=== PATIENT | male | born 1945 | race Caucasian/White ===

== ENCOUNTER 2021-04-20 08:49 | Inpatient (IN) ==
[2021-04-20 10:01] LABS: ABS Basophils 0.1 10^3/ul (0-0.2); ABS Eosinophils 0.2 10^3/ul (0-0.6); ABS Lymphocytes 1.5 10^3/ul (1.0-4.8); ABS Monocytes 0.8 10^3/ul (0-0.8); ABS Neutrophils 6.7 10^3/ul (1.5-7.7); Eosinophil % 2.6 %; Hematocrit 38 % (42-52); Hemoglobin 12.7 g/dL (14.0-18.0); Lymphocyte % 16.1 %; Mean Corpuscular HGB Conc 33 g/dL (31-36); Mean Corpuscular Hemoglobin 30 pg (27-31); Mean Corpuscular Volume 90 fL (80-94); Mean Platelet Volume 7.9 fL (7.4-10.4); Platelet Count 257 10^3/uL (150-450); Red Blood Count 4.25 10^6 /uL (4.18-5.48); Red Cell Distribution Width 14 % (10-15); White Blood Count 9.2 10^3/uL (3.5-10.8)
[2021-04-20 10:18] LABS: Albumin 3.8 g/dL (3.2-5.2); Albumin/Globulin Ratio 1.4 (1-3); Calcium 9.1 mg/dL (8.6-10.3); Globulin 2.8 g/dL (2-4); Magnesium 2.1 mg/dL (1.9-2.7); Total Bilirubin 0.6 mg/dL (0.2-1.0); Total Protein 6.6 g/dL (6.4-8.9); eGFR CKD-EPI 44.4 (>60)
[2021-04-20 10:19] LABS: Potassium 5.2 mmol/L (3.5-5.0)
[2021-04-20 10:20] LABS: Troponin I 0.01 ng/mL (<0.03)
[2021-04-20] MEDS ORDERED: Iodixanol (CONTRAST) 320 MG/ML 100 ML SDV IV ONE (10:54)
[2021-04-20 10:59] LABS: TSH Ultra Thyroid Stim Horm 1.99 mcIU/mL (0.34-5.60)
[2021-04-20] MEDS ORDERED: Acetaminophen IV 1 GM/100ML 100 ML IV ONE (11:45)
[2021-04-20] MEDS ORDERED: Magnesium Hydroxide LIQ 30 ML UDC PO PRN (13:26)
[2021-04-20] MEDS ORDERED: NS 0.9% 1000 ml BAG 1,000 ML IV SCH (14:00)
[2021-04-20 16:57] LABS: HDL Cholesterol 32.4 mg/dL
[2021-04-20 18:17] LABS: Troponin I 0.03 ng/mL (<0.03)
[2021-04-21 06:16] LABS: ABS Basophils 0.1 10^3/ul (0-0.2); ABS Eosinophils 0.3 10^3/ul (0-0.6); ABS Lymphocytes 1.5 10^3/ul (1.0-4.8); ABS Monocytes 0.6 10^3/ul (0-0.8); ABS Neutrophils 6.3 10^3/ul (1.5-7.7); Eosinophil % 3.1 %; Hematocrit 37 % (42-52); Hemoglobin 12.8 g/dL (14.0-18.0); Lymphocyte % 16.9 %; Mean Corpuscular HGB Conc 34 g/dL (31-36); Mean Corpuscular Hemoglobin 30 pg (27-31); Mean Corpuscular Volume 87 fL (80-94); Mean Platelet Volume 7.8 fL (7.4-10.4); Platelet Count 219 10^3/uL (150-450); Red Blood Count 4.27 10^6 /uL (4.18-5.48); Red Cell Distribution Width 14 % (10-15); White Blood Count 8.7 10^3/uL (3.5-10.8)
[2021-04-21 06:34] LABS: Anion Gap 6 mmol/L (2-11); Blood Urea Nitrogen 27 mg/dL (6-24); CO2 Carbon Dioxide 26 mmol/L (22-32); Calcium 8.9 mg/dL (8.6-10.3); Chloride 102 mmol/L (101-111); Glucose 128 mg/dL (70-100); Magnesium 2.1 mg/dL (1.9-2.7); Potassium 4.3 mmol/L (3.5-5.0); Sodium 134 mmol/L (135-145); eGFR CKD-EPI 63.6 (>60)
[2021-04-21] MEDS: Aspirin EC 81 mg TAB.EC (enteric coated) PO SCH (08:04)
[2021-04-21 08:23] LABS: Troponin I 0.03 ng/mL (<0.03)
[2021-04-21] MEDS ORDERED: Regadenoson 0.4 MG/5 ML SYRINGE ONE (09:44)
[2021-04-21] MEDS ORDERED: Aminophylline 25 MG/ML VIAL ONE (09:44)
[2021-04-22 05:18] LABS: Calcium 9.3 mg/dL (8.6-10.3); Magnesium 1.9 mg/dL (1.9-2.7); Potassium 4.3 mmol/L (3.5-5.0); eGFR CKD-EPI 69.9 (>60)
[2021-04-22] MEDS: Aspirin EC 81 mg TAB.EC (enteric coated) PO SCH (08:46)
[2021-04-22 09:33] LABS: % Iron Saturation 28 % (14 - 50); Total Iron Binding Capacity 330 mcg/dL (250 - 400)
[2021-04-22 15:34] VITALS: BP 151/97
== END 2021-04-22 15:47 | disposition home or self-care (01) | DRG 918 ==
LOC: ED 08:49 → EDHOLD 13:26 → MEDTELE 18:46
PROVIDERS: ADMIT Student in an Organized Health Care Education/Training Program; ATTEND Internal Medicine

== ENCOUNTER 2021-05-31 16:27 | Inpatient (IN) ==
[2021-05-31 17:47] LABS: ABS Eosinophils 0.1 10^3/ul (0-0.6); ABS Lymphocytes 1.6 10^3/ul (1.0-4.8); ABS Monocytes 0.6 10^3/ul (0-0.8); ABS Neutrophils 7.8 10^3/ul (1.5-7.7); Eosinophil % 1.2 %; Hematocrit 46 % (42-52); Hemoglobin 15.9 g/dL (14.0-18.0); Lymphocyte % 15.5 %; Mean Corpuscular HGB Conc 35 g/dL (31-36); Mean Corpuscular Hemoglobin 31 pg (27-31); Mean Corpuscular Volume 89 fL (80-94); Mean Platelet Volume 9.2 fL (7.4-10.4); Nucleated Red Blood Cells % 0.1; Platelet Count 269 10^3/uL (150-450); Red Blood Count 5.21 10^6 /uL (4.18-5.48); Red Cell Distribution Width 14 % (10-15); White Blood Count 10.1 10^3/uL (3.5-10.8)
[2021-05-31] MEDS ORDERED: Lactated Ringers 1000 ml BAG 1,000 ML IV SCH ×2 (18:00→19:00)
[2021-05-31 18:03] LABS: ALT 14 U/L (7-52); AST 15 U/L (13-39); Albumin 4.2 g/dL (3.2-5.2); Albumin/Globulin Ratio 1.4 (1-3); Alkaline Phosphatase 66 U/L (35-149); CO2 Carbon Dioxide 20 mmol/L (22-32); Calcium 9.8 mg/dL (8.6-10.3); Chloride 103 mmol/L (101-111); Globulin 3.1 g/dL (2-4); Glucose 130 mg/dL (70-100); Rapid COVID-19 Molecular Undetected (Undetected); Sodium 138 mmol/L (135-145); Total Protein 7.3 g/dL (6.4-8.9); eGFR CKD-EPI 18.8 (>60)
[2021-05-31 18:04] LABS: Anion Gap 15 mmol/L (2-11); Potassium 5.2 mmol/L (3.5-5.0)
[2021-05-31 18:05] LABS: Troponin I 0.03 ng/mL (<0.03)
[2021-05-31 18:24] LABS: Blood Urea Nitrogen 149 mg/dL (6-24)
[2021-05-31 20:59] LABS: CO2 Carbon Dioxide 21 mmol/L (22-32); Calcium 9.1 mg/dL (8.6-10.3); Chloride 105 mmol/L (101-111); Glucose 109 mg/dL (70-100); Sodium 137 mmol/L (135-145); eGFR CKD-EPI 22.6 (>60)
[2021-05-31 21:06] LABS: Troponin I 0.03 ng/mL (<0.03)
[2021-05-31 21:34] LABS: Blood Urea Nitrogen 137 mg/dL (6-24)
[2021-05-31 21:49] LABS: Anion Gap 11 mmol/L (2-11); Potassium 5.3 mmol/L (3.5-5.0)
[2021-05-31 22:19] LABS: Magnesium 2.9 mg/dL (1.9-2.7)
[2021-06-01 00:08] LABS: C Reactive Protein 1.75 mg/L (<8.01); Creatine Kinase 60 U/L (10-223)
[2021-06-01 01:00] LABS: Erythrocyte Sed Rate 0 mm/Hr (0-19)
[2021-06-01] MEDS ORDERED: NS 0.9% 1000 ml BAG 1,000 ML IV SCH ×2 (01:30→07:00)
[2021-06-01] MEDS ORDERED: NS 0.45% 1000 ml BAG 1,000 ML IV SCH ×2 (02:00→07:00)
[2021-06-01 05:02] LABS: Anion Gap 10 mmol/L (2-11); Blood Urea Nitrogen 116 mg/dL (6-24); CO2 Carbon Dioxide 22 mmol/L (22-32); Calcium 9.3 mg/dL (8.6-10.3); Chloride 104 mmol/L (101-111); Glucose 101 mg/dL (70-100); Magnesium 2.4 mg/dL (1.9-2.7); Potassium 4.9 mmol/L (3.5-5.0); Sodium 136 mmol/L (135-145); eGFR CKD-EPI 29.3 (>60)
[2021-06-01 06:30] LABS: Troponin I 0.03 ng/mL (<0.03)
[2021-06-01] MEDS: Aspirin EC 81 mg TAB.EC (enteric coated) PO SCH (09:25)
[2021-06-01 14:13] LABS: Urine Appearance Cloudy; Urine Bilirubin Negative (Negative); Urine Blood 3+ (Negative); Urine Color Yellow; Urine Glucose Negative (Negative); Urine Ketones Trace (Negative); Urine Nitrite Negative (Negative); Urine Protein Negative (Negative); Urine Specific Gravity 1.015 (1.002-1.030); Urine Urobilinogen Negative (Negative)
[2021-06-01 14:18] LABS: Urine Bacteria 1+ (Absent); Urine Red Blood Cell 3+(>10/hpf) (Absent); Urine White Blood Cell 1+(6-10/hpf) (Absent)
[2021-06-01 14:25] LABS: Urine Creatinine Concentration 62.21 mg/dL
[2021-06-01] MEDS ORDERED: Lactated Ringers 1000 ml BAG 1,000 ML IV SCH (19:00)
[2021-06-02 05:58] LABS: ABS Eosinophils 0.2 10^3/ul (0-0.6); ABS Monocytes 0.7 10^3/ul (0-0.8); ABS Neutrophils 7.2 10^3/ul (1.5-7.7); Eosinophil % 1.9 %; Hematocrit 41 % (42-52); Hemoglobin 14.2 g/dL (14.0-18.0); Lymphocyte % 11.1 %; Mean Corpuscular HGB Conc 34 g/dL (31-36); Mean Corpuscular Hemoglobin 30 pg (27-31); Mean Corpuscular Volume 89 fL (80-94); Mean Platelet Volume 9.4 fL (7.4-10.4); Platelet Count 219 10^3/uL (150-450); Red Blood Count 4.67 10^6 /uL (4.18-5.48); Red Cell Distribution Width 14 % (10-15); White Blood Count 9.2 10^3/uL (3.5-10.8)
[2021-06-02 06:19] LABS: Calcium 9.3 mg/dL (8.6-10.3); Magnesium 1.9 mg/dL (1.9-2.7); eGFR CKD-EPI 43.8 (>60)
[2021-06-02 06:21] LABS: Potassium 5.1 mmol/L (3.5-5.0)
[2021-06-02] MEDS: Aspirin EC 81 mg TAB.EC (enteric coated) PO SCH (10:11)
[2021-06-02] MEDS ORDERED: Lactated Ringers 1000 ml BAG 1,000 ML IV SCH (13:00)
[2021-06-03 06:14] LABS: Calcium 8.9 mg/dL (8.6-10.3); Magnesium 1.6 mg/dL (1.9-2.7); Potassium 4.3 mmol/L (3.5-5.0); eGFR CKD-EPI 62.3 (>60)
[2021-06-03] MEDS ORDERED: Magnesium Sulfate 2 gm BAG 2 GM/50 ML BAG IVPB ONE (07:59)
[2021-06-03] MEDS: Aspirin EC 81 mg TAB.EC (enteric coated) PO SCH (09:59)
[2021-06-03 12:09] VITALS: BP 123/72
== END 2021-06-03 18:30 | disposition home or self-care (01) | DRG 308 ==
LOC: ED 16:27 → EDHOLD 16:27 → SUATTDRO 23:00 → MEDTELE 06-01 02:20 → SUATTDRO 06-01 14:43
PROVIDERS: ADMIT Internal Medicine; ATTEND Internal Medicine

== ENCOUNTER 2022-10-15 11:20 | Inpatient (IN) ==
[2022-10-15] MEDS ORDERED: NS 0.9% 1000 ml BAG 1,000 ML IV ONE (11:51)
[2022-10-15 12:15] LABS: ABS Basophils 0.1 10^3/uL (0.0-0.1); ABS Eosinophils 0.3 10^3/uL (0.0-0.5); ABS Lymphocytes 1.2 10^3/uL (1.0-4.8); ABS Monocytes 0.5 10^3/uL (0.0-1.1); ABS Neutrophils 7.8 10^3/uL (1.5-7.6); ABS Nucleated RBC 0.01 10^3/ul; Eosinophil % 2.6 %; Hematocrit 43.8 % (38-53); Hemoglobin 15.1 g/dL (13.2-16.3); Mean Corpuscular Hgb Conc 34.5 g/dL (31-36); Mean Corpuscular Volume 89.7 fL (80-97); Mean Platelet Volume 7.7 fL (7.5-11.2); Nucleated Red Blood Cells % 0.1 /100 WBC (0.0-0.4); Platelet Count 262 10^3/uL (150-450); Red Blood Count 4.88 10^6/uL (4.06-5.63); Red Cell Distribution Width 14.3 % (12-17); White Blood Count 9.7 10^3/uL (3.6-10.2)
[2022-10-15 12:24] LABS: INR 1.18 (0.88-1.18)
[2022-10-15 12:34] LABS: ALT 12 U/L (7-52); AST 16 U/L (13-39); Albumin 4.4 g/dL (3.2-5.2); Albumin/Globulin Ratio 1.3 (1-3); Alkaline Phosphatase 64 U/L (35-149); Anion Gap 12 mmol/L (2-16); Blood Urea Nitrogen 33 mg/dL (6-24); CO2 Carbon Dioxide 20 mmol/L (22-32); Calcium 10.4 mg/dL (8.6-10.3); Chloride 108 mmol/L (101-111); Creatine Kinase 133 U/L (10-223); Creatinine, Serum 1.22 mg/dL (0.67-1.17); Globulin 3.3 g/dL (2-4); Glucose 189 mg/dL (70-100); Lipase 21 U/L (11.0-82.0); Magnesium 1.6 mg/dL (1.9-2.7); Potassium 3.7 mmol/L (3.5-5.0); Sodium 140 mmol/L (135-145); Total Protein 7.7 g/dL (6.4-8.9); eGFR CKD-EPI 60.7 (>60)
[2022-10-15 12:40] LABS: High Sens Troponin Baseline 466 pg/mL (<20)
[2022-10-15 12:54] LABS: Alcohol, S < 13 mg/dL (<13)
[2022-10-15] MEDS ORDERED: Magnesium Sulfate 2 gm BAG 2 GM/50 ML BAG IVPB ONE ×2 (12:59→13:31)
[2022-10-15 13:39] LABS: High Sensitivity Troponin 1 Hr 408 pg/mL (<20)
[2022-10-15 14:08] LABS: Urine Appearance Clear; Urine Bilirubin Negative (Negative); Urine Blood Negative (Negative); Urine Color Yellow; Urine Glucose Negative (Negative); Urine Ketones Negative (Negative); Urine Nitrite Negative (Negative); Urine Protein 1+(30 mg/dL) (Negative); Urine Specific Gravity 1.017 (1.002-1.030); Urine Urobilinogen Negative (Negative)
[2022-10-15 14:20] LABS: Urine Bacteria Absent (Absent); Urine Red Blood Cell Absent (Absent); Urine Transitional Epithelial Present (Absent); Urine White Blood Cell Absent (Absent)
[2022-10-15 15:41] LABS: Calcium (PTH Intact) 10.2 mg/dL (8.6-10.3)
[2022-10-15 15:44] LABS: Cholesterol 222 mg/dL; LDL Cholesterol 160 mg/dL; Phosphorus 3.1 mg/dL (2.5-5.0); Triglycerides 104 mg/dL
[2022-10-15 15:56] LABS: TSH Ultra Thyroid Stim Horm 10.93 mcIU/mL (0.34-5.60)
[2022-10-15] MEDS ORDERED: Heparin DRIP 25,000 UNITS BAG 25,000 UNITS/500 ML BAG IV SCH (16:30)
[2022-10-15] MEDS ORDERED: Metoprolol Tartrate 5 mg VIAL 5 ml VIAL (1 mg/ml) IV ONE (17:18)
[2022-10-15] MEDS ORDERED: hydrALAZINE 20 mg/ml 1 ML Vial IV IV SLOW PU PRN (18:11)
[2022-10-15] MEDS: Heparin 5000 UNITS/ML 1 mL VIAL IV PRN (19:37)
[2022-10-15 21:35] LABS: Creatinine, Serum 1.04 mg/dL (0.67-1.17); eGFR CKD-EPI 73.5 (>60)
[2022-10-16 04:17] LABS: ABS Basophils 0.1 10^3/uL (0.0-0.1); ABS Eosinophils 0.4 10^3/uL (0.0-0.5); ABS Lymphocytes 1.7 10^3/uL (1.0-4.8); ABS Monocytes 0.7 10^3/uL (0.0-1.1); ABS Neutrophils 7.2 10^3/uL (1.5-7.6); Hematocrit 42.4 % (38-53); Hemoglobin 14.7 g/dL (13.2-16.3); Lymphocyte % 17.2 %; Mean Corpuscular Hemoglobin 30.8 pg (27-33); Mean Corpuscular Hgb Conc 34.8 g/dL (31-36); Mean Corpuscular Volume 88.6 fL (80-97); Mean Platelet Volume 7.6 fL (7.5-11.2); Platelet Count 243 10^3/uL (150-450); Red Blood Count 4.79 10^6/uL (4.06-5.63); Red Cell Distribution Width 14.3 % (12-17); White Blood Count 10.1 10^3/uL (3.6-10.2)
[2022-10-16 04:33] LABS: Creatinine, Serum 1.04 mg/dL (0.67-1.17); Potassium 3.8 mmol/L (3.5-5.0); eGFR CKD-EPI 73.5 (>60)
[2022-10-16] MEDS: Heparin 5000 UNITS/ML 1 mL VIAL IV PRN (05:25)
[2022-10-16 08:23] LABS: Magnesium 2.2 mg/dL (1.9-2.7); Phosphorus 2.9 mg/dL (2.5-5.0)
[2022-10-16] MEDS ORDERED: Regadenoson 0.4 MG/5 ML SYRINGE ONE (08:59)
[2022-10-16] MEDS ORDERED: Aminophylline 25 MG/ML VIAL ONE (08:59)
[2022-10-16] MEDS ORDERED: Aspirin EC 81 mg TAB.EC (enteric coated) PO SCH ×2 (11:34→15:02)
[2022-10-16 14:05] VITALS: BP 120/100
== END 2022-10-16 19:02 | disposition home or self-care (01) | DRG 311 ==
LOC: EDHOLD 11:20 → ED 11:20 → SUATTDRO 15:00 → MEDTELE 17:37
PROVIDERS: ADMIT Student in an Organized Health Care Education/Training Program; ATTEND Internal Medicine

== ENCOUNTER 2023-07-17 10:13 | Observation (INO) ==
[2023-07-17] MEDS: NS 0.9% 1000 ml BAG 1,000 ML IV ONE (11:24)
[2023-07-17 11:46] LABS: ABS Eosinophils 0.1 10^3/uL (0.0-0.5); ABS Lymphocytes 1.2 10^3/uL (1.0-4.8); ABS Monocytes 0.8 10^3/uL (0.0-1.1); ABS Neutrophils 10.2 10^3/uL (1.5-7.6); Eosinophil % 0.6 %; Hematocrit 42.4 % (38-53); Hemoglobin 14.2 g/dL (13.2-16.3); Mean Corpuscular Hemoglobin 28.7 pg (27-33); Mean Corpuscular Hgb Conc 33.5 g/dL (31-36); Mean Corpuscular Volume 85.6 fL (80-97); Mean Platelet Volume 8.1 fL (7.5-11.2); Platelet Count 294 10^3/uL (150-450); Red Blood Count 4.96 10^6/uL (4.06-5.63); Red Cell Distribution Width 15.3 % (12-17); White Blood Count 12.3 10^3/uL (3.6-10.2)
[2023-07-17 11:55] LABS: INR 1.56 (0.83-1.13)
[2023-07-17 12:13] LABS: Albumin 4.2 g/dL (3.2-5.2); Albumin/Globulin Ratio 1.3 (1-3); Calcium 9.5 mg/dL (8.6-10.3); Creatinine, Serum 1.61 mg/dL (0.67-1.17); Globulin 3.2 g/dL (2-4); Potassium 4.6 mmol/L (3.5-5.0); Total Bilirubin 1.4 mg/dL (0.2-1.0); Total Protein 7.4 g/dL (6.4-8.9); eGFR CKD-EPI 43.2 (>60)
[2023-07-17 13:00] LABS: High Sensitivity Troponin 1 Hr 305 pg/mL (<20)
[2023-07-17] MEDS: Iodixanol (CONTRAST) 320 MG/ML 100 ML SDV IV ONE (13:06)
[2023-07-17] MEDS: NS 0.9% 1000 ml BAG 1,000 ML IV SCH ×2 (14:07→19:21)
[2023-07-17 14:18] LABS: Urine Appearance Cloudy; Urine Color Red
[2023-07-17 14:28] LABS: Urine Specific Gravity > 1.060 (1.002-1.030)
[2023-07-17 14:49] LABS: Urine Bacteria Absent /HPF (Absent); Urine Red Blood Cell 3+(>10/hpf) /HPF (0-Trace); Urine White Blood Cell 1+(6-10/hpf) /HPF (0-Trace)
[2023-07-17 18:28] LABS: High Sens Troponin Baseline 377 pg/mL (<20)
[2023-07-17 18:55] LABS: Creatine Kinase 6526 U/L (10-223)
[2023-07-17] MEDS: Lactated Ringers 1000 ml BAG 1,000 ML IV SCH ×2 (19:22)
[2023-07-17 19:25] LABS: High Sensitivity Troponin 1 Hr 369 pg/mL (<20)
[2023-07-17] MEDS: Nystatin TOP POWDER 15 GM BTL TOPICAL SCH (23:28)
[2023-07-18 06:31] LABS: ABS Eosinophils 0.3 10^3/uL (0.0-0.5); ABS Lymphocytes 1.4 10^3/uL (1.0-4.8); ABS Monocytes 0.6 10^3/uL (0.0-1.1); ABS Neutrophils 5.8 10^3/uL (1.5-7.6); ABS Nucleated RBC 0.02 10^3/ul; Eosinophil % 3.3 %; Hematocrit 36.4 % (38-53); Hemoglobin 12.7 g/dL (13.2-16.3); Lymphocyte % 17.1 %; Mean Corpuscular Hemoglobin 29.9 pg (27-33); Mean Corpuscular Volume 85.3 fL (80-97); Nucleated Red Blood Cells % 0.2 %/100WBC (0.0-0.8); Platelet Count 222 10^3/uL (150-450); Red Blood Count 4.26 10^6/uL (4.06-5.63); Red Cell Distribution Width 15.5 % (12-17); White Blood Count 8.1 10^3/uL (3.6-10.2)
[2023-07-18 06:56] LABS: Calcium 8.1 mg/dL (8.6-10.3); Creatinine, Serum 1.17 mg/dL (0.67-1.17); Potassium 4.1 mmol/L (3.5-5.0); eGFR CKD-EPI 63.4 (>60)
[2023-07-18 07:10] LABS: TSH Ultra Thyroid Stim Horm 10.16 mcIU/mL (0.34-5.60)
[2023-07-18 07:12] LABS: Albumin 3.4 g/dL (3.2-5.2); Albumin/Globulin Ratio 1.3 (1-3); Globulin 2.6 g/dL (2-4); Magnesium 1.9 mg/dL (1.9-2.7); Phosphorus 2.4 mg/dL (2.5-5.0); Total Bilirubin 1.3 mg/dL (0.2-1.0)
[2023-07-18] MEDS ORDERED: Sulfur Hexaflouride MICROSPHR 25 MG VIAL ONE (08:40)
[2023-07-18] MEDS: CMCS:Alfuzosin ER 10 mg TAB.ER (NF) 10 MG TAB.ER PO SCH (10:39)
[2023-07-18] MEDS: Aspirin EC 81 mg TAB.EC (enteric coated) PO SCH (10:39)
[2023-07-18 17:53] VITALS: BP 113/91
== END 2023-07-18 18:40 | disposition home or self-care (01) ==
LOC: ED 10:13 → EDHOLD 10:13 → SUATTDRO 15:03 → MEDTELE 16:45
PROVIDERS: ADMIT Internal Medicine; ATTEND Student in an Organized Health Care Education/Training Program

== ENCOUNTER 2023-08-17 14:45 | Observation (INO) ==
[2023-08-17 16:14] LABS: ABS Basophils 0.1 10^3/uL (0.0-0.1); ABS Eosinophils 0.2 10^3/uL (0.0-0.5); ABS Lymphocytes 1.6 10^3/uL (1.0-4.8); ABS Monocytes 0.6 10^3/uL (0.0-1.1); ABS Neutrophils 5.5 10^3/uL (1.5-7.6); Hematocrit 39.5 % (38-53); Hemoglobin 13.4 g/dL (13.2-16.3); Lymphocyte % 20.5 %; Mean Corpuscular Hemoglobin 29.2 pg (27-33); Mean Corpuscular Volume 85.9 fL (80-97); Mean Platelet Volume 8.3 fL (7.5-11.2); Nucleated Red Blood Cells % 0.1 %/100WBC (0.0-0.8); Platelet Count 189 10^3/uL (150-450); Red Cell Distribution Width 14.9 % (12-17); White Blood Count 7.9 10^3/uL (3.6-10.2)
[2023-08-17] MEDS: NS 0.9% 500 ml BAG 500 ML IV ONE (16:39)
[2023-08-17 16:41] LABS: Albumin 3.9 g/dL (3.2-5.2); Albumin/Globulin Ratio 1.3 (1-3); C Reactive Protein 4.07 mg/L (<8.01); Calcium 9.3 mg/dL (8.6-10.3); Creatinine, Serum 2.14 mg/dL (0.67-1.17); Globulin 2.9 g/dL (2-4); Magnesium 1.6 mg/dL (1.9-2.7); Phosphorus 2.6 mg/dL (2.5-5.0); Potassium 4.4 mmol/L (3.5-5.0); Total Protein 6.8 g/dL (6.4-8.9); eGFR CKD-EPI 30.7 (>60)
[2023-08-17 18:02] LABS: High Sensitivity Troponin 1 Hr 207 pg/mL (<20)
[2023-08-17] MEDS: Magnesium Sulfate 2 gm BAG 2 GM/50 ML BAG IVPB ONE (18:33)
[2023-08-17 20:18] LABS: High Sensitivity Troponin 3 Hr 222 pg/mL (<20)
[2023-08-18 05:22] LABS: Urine Appearance Clear; Urine Bilirubin Negative (Negative); Urine Blood Negative (Negative); Urine Color Yellow; Urine Glucose Negative (Negative); Urine Ketones Negative (Negative); Urine Nitrite 1+ (Negative); Urine Protein 1+ (>=30 mg/dL) (Negative); Urine Specific Gravity 1.022 (1.002-1.030); Urine Urobilinogen Negative (Negative); Urine pH 5.5 (5.0-8.0)
[2023-08-18 05:35] LABS: Urine Bacteria Absent /HPF (Absent); Urine Red Blood Cell Absent /HPF (0-Trace); Urine White Blood Cell 1+(6-10/hpf) /HPF (0-Trace)
[2023-08-18 06:27] LABS: Calcium 9.2 mg/dL (8.6-10.3); Creatinine, Serum 1.93 mg/dL (0.67-1.17); Magnesium 1.8 mg/dL (1.9-2.7); Potassium 4.6 mmol/L (3.5-5.0); eGFR CKD-EPI 34.8 (>60)
[2023-08-18] MEDS: Magnesium Sulfate 2 gm BAG 2 GM/50 ML BAG IVPB ONE (07:16)
[2023-08-18] MEDS: Nystatin TOP POWDER 15 GM BTL TOPICAL SCH (08:01)
[2023-08-18] MEDS: CMCS:Alfuzosin ER 10 mg TAB.ER (NF) 10 MG TAB.ER PO SCH (08:01)
[2023-08-18] MEDS: Aspirin EC 81 mg TAB.EC (enteric coated) PO SCH (08:02)
[2023-08-19 06:21] LABS: Calcium 8.4 mg/dL (8.6-10.3); Creatinine, Serum 1.65 mg/dL (0.67-1.17); Magnesium 1.7 mg/dL (1.9-2.7); Potassium 3.9 mmol/L (3.5-5.0)
[2023-08-19 09:51] VITALS: BP 117/78
== END 2023-08-19 12:00 | disposition home or self-care (01) ==
LOC: ED 14:45 → EDHOLD 14:45 → SUATTDRO 21:03 → MEDTELE 08-18 01:03
PROVIDERS: ADMIT Internal Medicine; ATTEND Student in an Organized Health Care Education/Training Program

== ENCOUNTER 2023-09-09 09:21 | Observation (INO) ==
[2023-09-09 10:06] LABS: ABS Basophils 0.1 10^3/uL (0.0-0.1); ABS Eosinophils 0.1 10^3/uL (0.0-0.5); ABS Lymphocytes 1.5 10^3/uL (1.0-4.8); ABS Monocytes 0.5 10^3/uL (0.0-1.1); ABS Neutrophils 6.1 10^3/uL (1.5-7.6); Eosinophil % 1.3 %; Hematocrit 39.3 % (38-53); Hemoglobin 13.5 g/dL (13.2-16.3); Lymphocyte % 18.1 %; Mean Corpuscular Hemoglobin 29.2 pg (27-33); Mean Corpuscular Hgb Conc 34.2 g/dL (31-36); Mean Corpuscular Volume 85.2 fL (80-97); Mean Platelet Volume 8.4 fL (7.5-11.2); Platelet Count 320 10^3/uL (150-450); Red Blood Count 4.61 10^6/uL (4.06-5.63); White Blood Count 8.3 10^3/uL (3.6-10.2)
[2023-09-09] MEDS: NS 0.9% 1000 ml BAG 1,000 ML IV ONE (10:09)
[2023-09-09 10:21] LABS: Activated Partial Thrombo Time 33.1 seconds (26.0-38.0); INR 1.96 (0.83-1.13)
[2023-09-09 10:24] LABS: Albumin 3.8 g/dL (3.2-5.2); Albumin/Globulin Ratio 1.2 (1-3); C Reactive Protein 2.1 mg/L (<8.01); Calcium 9.3 mg/dL (8.6-10.3); Creatinine, Serum 2.63 mg/dL (0.67-1.17); Globulin 3.1 g/dL (2-4); Potassium 4.5 mmol/L (3.5-5.0); Total Bilirubin 0.8 mg/dL (0.2-1.0); Total Protein 6.9 g/dL (6.4-8.9)
[2023-09-09 11:36] LABS: High Sensitivity Troponin 1 Hr 246 pg/mL (<20)
[2023-09-09 13:13] LABS: Urine Appearance Turbid; Urine Bilirubin Negative (Negative); Urine Blood 2+ (Negative); Urine Color Yellow; Urine Glucose Negative (Negative); Urine Ketones Negative (Negative); Urine Nitrite Negative (Negative); Urine Protein 2+ (>=100 mg/dL) (Negative); Urine Specific Gravity 1.023 (1.002-1.030); Urine Urobilinogen Negative (Negative); Urine pH 5.5 (5.0-8.0)
[2023-09-09 13:39] LABS: Urine Bacteria Absent /HPF (Absent); Urine Red Blood Cell 3+(>10/hpf) /HPF (0-Trace); Urine White Blood Cell 1+(6-10/hpf) /HPF (0-Trace)
[2023-09-09 13:46] LABS: Magnesium 1.8 mg/dL (1.9-2.7)
[2023-09-09] MEDS: Magnesium Sulfate 2 gm BAG 2 GM/50 ML BAG IVPB ONE (17:23)
[2023-09-09] MEDS ORDERED: Dextrose 50% Syringe 50 ml 25 GM/50 ML SYRINGE IV PUSH PRN (18:52)
[2023-09-09] MEDS ORDERED: Ondansetron 4 mg VIAL 2 MG/ML 2 ml VIAL IV PRN (19:43)
[2023-09-09] MEDS: Sulfamethox/Trimethoprim SS TAB 400/80 mg PO SCH (21:17)
[2023-09-09] MEDS: CMCS: Bicalutamide 50 mg TAB (NF) PO SCH (21:17)
[2023-09-10 06:12] LABS: Hematocrit 34.8 % (38-53); Hemoglobin 12.4 g/dL (13.2-16.3); Mean Corpuscular Hgb Conc 35.5 g/dL (31-36); Mean Corpuscular Volume 84.7 fL (80-97); Platelet Count 211 10^3/uL (150-450); Red Blood Count 4.11 10^6/uL (4.06-5.63); Red Cell Distribution Width 15.1 % (12-17); White Blood Count 6.6 10^3/uL (3.6-10.2)
[2023-09-10 06:40] LABS: Calcium 8.8 mg/dL (8.6-10.3); Creatinine, Serum 2.24 mg/dL (0.67-1.17); Magnesium 2.1 mg/dL (1.9-2.7); Potassium 3.9 mmol/L (3.5-5.0); eGFR CKD-EPI 29.1 (>60)
[2023-09-10] MEDS: CMCS: Alfuzosin ER 10 mg TAB.ER (NF) 10 MG TAB.ER PO SCH (08:40)
[2023-09-10] MEDS: Aspirin EC 81 mg TAB.EC (enteric coated) PO SCH (08:40)
[2023-09-10] MEDS: Lactated Ringers 1000 ml BAG 1,000 ML IV ONE (14:38)
[2023-09-10] MEDS: Nystatin SUSPENSION 100,000 UNITS/ML UDC PO SCH (17:14)
[2023-09-11 06:27] LABS: Calcium 8.4 mg/dL (8.6-10.3); Creatinine, Serum 2.13 mg/dL (0.67-1.17); Magnesium 1.9 mg/dL (1.9-2.7); Phosphorus 2.1 mg/dL (2.5-5.0); Potassium 4.2 mmol/L (3.5-5.0); eGFR CKD-EPI 30.9 (>60)
[2023-09-11 06:50] LABS: Folate 7.94 ng/mL (5.90-24.80)
[2023-09-11] MEDS: Potassium & Sodium Phos 250 mg = 1 PACKET PO SCH (09:47)
[2023-09-11] MEDS: Magnesium Sulfate IV 1GM/100ML 1 GM/100 ML BAG IV ONE (14:39)
[2023-09-12 07:13] LABS: Calcium 8.5 mg/dL (8.6-10.3); Creatinine, Serum 2.03 mg/dL (0.67-1.17); Phosphorus 2.4 mg/dL (2.5-5.0); Potassium 4.3 mmol/L (3.5-5.0); eGFR CKD-EPI 32.7 (>60)
[2023-09-12 11:35] LABS: TSH Ultra Thyroid Stim Horm 2.58 mcIU/mL (0.34-5.60)
[2023-09-12 14:55] LABS: ABS Eosinophils 0.2 10^3/uL (0.0-0.5); ABS Lymphocytes 1.1 10^3/uL (1.0-4.8); ABS Monocytes 0.4 10^3/uL (0.0-1.1); ABS Nucleated RBC 0.01 10^3/ul; Eosinophil % 3.7 %; Hematocrit 34.9 % (38-53); Hemoglobin 11.9 g/dL (13.2-16.3); Lymphocyte % 18.7 %; Mean Corpuscular Hgb Conc 34.1 g/dL (31-36); Mean Corpuscular Volume 85.2 fL (80-97); Mean Platelet Volume 8.1 fL (7.5-11.2); Nucleated Red Blood Cells % 0.1 %/100WBC (0.0-0.8); Platelet Count 194 10^3/uL (150-450); Red Blood Count 4.09 10^6/uL (4.06-5.63); Red Cell Distribution Width 15.1 % (12-17); White Blood Count 5.8 10^3/uL (3.6-10.2)
[2023-09-13 07:39] LABS: Calcium 8.6 mg/dL (8.6-10.3); Creatinine, Serum 1.87 mg/dL (0.67-1.17); Potassium 4.3 mmol/L (3.5-5.0); eGFR CKD-EPI 36.1 (>60)
[2023-09-13] MEDS ORDERED: Sulfur Hexaflouride MICROSPHR 25 MG VIAL ONE (08:12)
[2023-09-13 09:09] LABS: Phosphorus 2.9 mg/dL (2.5-5.0)
[2023-09-13 14:14] VITALS: BP 97/60
== END 2023-09-13 13:52 ==
LOC: EDHOLD 09:21 → ED 09:21 → SUATTDRO 14:57 → MEDTELE 15:53 → UNDODISOB 09-13 13:52
PROVIDERS: ADMIT Internal Medicine; ATTEND Internal Medicine

== ENCOUNTER 2023-12-12 09:36 | Observation (INO) ==
[2023-12-12 10:45] LABS: ABS Eosinophils 0.1 10^3/uL (0.0-0.5); ABS Lymphocytes 0.6 10^3/uL (1.0-4.8); ABS Monocytes 0.6 10^3/uL (0.0-1.1); ABS Neutrophils 8.6 10^3/uL (1.5-7.6); ABS Nucleated RBC 0.01 10^3/ul; Eosinophil % 0.9 %; Hematocrit 31.2 % (38-53); Hemoglobin 10.7 g/dL (13.2-16.3); Lymphocyte % 6.1 %; Mean Corpuscular Hemoglobin 30.8 pg (27-33); Mean Corpuscular Hgb Conc 34.1 g/dL (31-36); Mean Corpuscular Volume 90.3 fL (80-97); Mean Platelet Volume 7.5 fL (7.5-11.2); Nucleated Red Blood Cells % 0.1 %/100WBC (0.0-0.8); Platelet Count 250 10^3/uL (150-450); Red Blood Count 3.46 10^6/uL (4.06-5.63); Red Cell Distribution Width 15.3 % (12-17); White Blood Count 9.9 10^3/uL (3.6-10.2)
[2023-12-12 12:03] LABS: Albumin 3.4 g/dL (3.2-5.2); Albumin/Globulin Ratio 1.1 (1-3); Calcium 8.5 mg/dL (8.6-10.3); Creatinine, Serum 1.27 mg/dL (0.67-1.17); Potassium 4.4 mmol/L (3.5-5.0); Total Bilirubin 0.9 mg/dL (0.2-1.0); Total Protein 6.4 g/dL (6.4-8.9); eGFR CKD-EPI 57.5 (>60)
[2023-12-12] MEDS: Iodixanol (CONTRAST) 320 MG/ML 100 ML SDV IV ONE (13:14)
[2023-12-12 17:13] LABS: Urine Appearance Turbid; Urine Bilirubin Negative (Negative); Urine Blood 2+ (Negative); Urine Color Yellow; Urine Glucose Negative (Negative); Urine Ketones Negative (Negative); Urine Nitrite Negative (Negative); Urine Protein 1+ (>=30 mg/dL) (Negative); Urine Specific Gravity 1.026 (1.002-1.030); Urine Urobilinogen Negative (Negative)
[2023-12-12 17:19] LABS: Urine Bacteria Absent /HPF (Absent); Urine Red Blood Cell 3+(>10/hpf) /HPF (0-Trace); Urine White Blood Cell 3+(>20/hpf) /HPF (0-Trace)
[2023-12-12] MEDS ORDERED: Dextrose 50% Syringe 50 ml 25 GM/50 ML SYRINGE IV PUSH PRN (19:59)
[2023-12-13 08:08] LABS: Mean Corpuscular Hemoglobin 31.1 pg (27-33); Mean Corpuscular Hgb Conc 34.6 g/dL (31-36); Mean Corpuscular Volume 89.9 fL (80-97); Mean Platelet Volume 7.8 fL (7.5-11.2); Platelet Count 203 10^3/uL (150-450); Red Blood Count 2.89 10^6/uL (4.06-5.63); Red Cell Distribution Width 15.1 % (12-17)
[2023-12-13 08:16] LABS: Calcium 7.5 mg/dL (8.6-10.3); Creatinine, Serum 1.33 mg/dL (0.67-1.17); Magnesium 1.5 mg/dL (1.9-2.7); Potassium 3.8 mmol/L (3.5-5.0); eGFR CKD-EPI 54.4 (>60)
[2023-12-13] MEDS: Polyethylene Glycol 3350 17 GM PACKET PO SCH (08:31)
[2023-12-13] MEDS: ABIRATERONE 500 MG PO SCH (09:29)
[2023-12-13] MEDS: Potassium Chloride LIQUID 20 MEQ/15 ML LIQUID PO ONE (10:55)
[2023-12-13] MEDS: Magnesium Sulf 4 GM/100 ML IV 4,000 MG/100 ML BAG IVPB ONE (10:56)
[2023-12-13] MEDS: Potassium Chlor 20 meq TAB.ER PO ONE (10:56)
[2023-12-13] MEDS: Sulfur Hexaflouride MICROSPHR 25 MG VIAL IV ONE (12:56)
[2023-12-13] MEDS ORDERED: Sulfur Hexaflouride MICROSPHR 25 MG VIAL ONE (13:08)
[2023-12-13 15:55] LABS: Urine Appearance Extra Turbid; Urine Bacteria 1+ /HPF (Absent); Urine Bilirubin Negative (Negative); Urine Blood 3+ (Negative); Urine Glucose Negative (Negative); Urine Ketones Negative (Negative); Urine Nitrite Negative (Negative); Urine Protein 1+ (>=30 mg/dL) (Negative); Urine Red Blood Cell 3+(>10/hpf) /HPF (0-Trace); Urine Specific Gravity 1.022 (1.002-1.030); Urine Urobilinogen Negative (Negative); Urine White Blood Cell 3+(>20/hpf) /HPF (0-Trace); Urine pH 5.5 (5.0-8.0)
[2023-12-13 15:57] LABS: Urine Color Yellow
[2023-12-13 18:12] VITALS: BP 98/69
== END 2023-12-13 18:40 ==
LOC: ED 09:36 → EDHOLD 09:36 → MEDTELE 12-13 00:27
PROVIDERS: ADMIT Internal Medicine; ATTEND Internal Medicine